=== PATIENT | female | born 1970 | race Two or more races ===

== ENCOUNTER 2020-05-03 11:30 | Inpatient (IN) | payer OTHER ==
[~2020-05-03] VITALS: Ht 165.1 cm; Wt 117.9 kg
[2020-05-03] MEDS ORDERED: LODINE300 MG PO (12:48)
[2020-05-09] MEDS ORDERED: ETODOLAC500 M1 PO (09:01)
[2020-05-14] MEDS ORDERED: KEFLEX500 MG PO (07:16)
[2020-05-14] MEDS ORDERED: ETODOLAC300 MG PO (07:24)
[2020-05-14] MEDS ORDERED: COLACE100 MG PO (07:24)
== END 2020-05-14 09:01 | disposition home or self-care (01) | DRG 740 ==
LOC: RECOVERY 11:30 → OB/GYN 05-09 06:40 → O/R 05-09 06:40 → SURH 05-09 07:00 → OB/GYN 05-09 14:19
PROVIDERS: Surgery; ADMIT Obstetrics & Gynecology; ATTEND Obstetrics & Gynecology
PROC: 0UT90ZZ Resection of Uterus, Open Approach (ICD-10-PCS; principal; 2020-05-09 07:00)
PROC: 0DNW0ZZ Release Peritoneum, Open Approach (ICD-10-PCS; 2020-05-09 07:00)
DX: C54.1 Malignant neoplasm of endometrium (principal); L03.116 Cellulitis of left lower limb; L02.416 Cutaneous abscess of left lower limb; N84.1 Polyp of cervix uteri; N73.6 Female pelvic peritoneal adhesions (postinfective); R50.82 Postprocedural fever

== ENCOUNTER 2020-06-29 10:05 | Inpatient (IN) | payer OTHER ==
[~2020-06-29] VITALS: Ht 165.1 cm; Wt 123.4 kg
[~2020-06-29 10:05] MED LIST: COLACE100 MG PO; ETODOLAC300 MG PO; ETODOLAC500 M1 PO; KEFLEX500 MG PO; LODINE300 MG PO
[2020-07-01] MEDS ORDERED: LODINE300 MG PO (10:31)
[2020-07-04] MEDS ORDERED: LODINE XL500 MG PO (13:16)
== END 2020-07-06 12:19 | disposition home or self-care (01) | DRG 743 ==
LOC: OB/GYN 07-01 08:30 → O/R 07-04 07:32 → OB/GYN 07-04 08:30
PROVIDERS: Surgery; ADMIT Obstetrics & Gynecology Gynecologic Oncology; ATTEND Obstetrics & Gynecology Gynecologic Oncology
PROC: 0UB20ZZ Excision of Bilateral Ovaries, Open Approach (ICD-10-PCS; principal; 2020-07-04 12:45)
PROC: 0UBC0ZZ Excision of Cervix, Open Approach (ICD-10-PCS; 2020-07-04 12:45)
DX: D26.0 Other benign neoplasm of cervix uteri (principal); N83.292 Other ovarian cyst, left side; N83.291 Other ovarian cyst, right side; N72 Inflammatory disease of cervix uteri

== ENCOUNTER → 2021-01-21 | Day surgery (SDC) | payer OTHER ==
[~2021-01-21] MED LIST changes: +LODINE XL500 MG PO
== END | disposition home or self-care (01) ==
LOC: ADM 01-14 12:30 → AMB-ENDOS 07:58
PROVIDERS: ATTEND Surgery
DX: K62.1 Rectal polyp (principal); K63.5 Polyp of colon; Z20.822 Contact with and (suspected) exposure to COVID-19; Z12.11 Encounter for screening for malignant neoplasm of colon

== ENCOUNTER 2022-04-30 05:45 | Day surgery (SDC) | payer OTHER ==
[2022-04-30] MEDS ORDERED: PROTONIX20 MG PO (08:25)
[2022-04-30] MEDS ORDERED: CARAFATE1 GM/10 ML PO (08:25)
== END 2022-04-30 09:30 | disposition home or self-care (01) ==
LOC: AMB-ENDOS 05:45
PROVIDERS: ATTEND Surgery
DX: K29.60 Other gastritis without bleeding (principal); E66.01 Morbid (severe) obesity due to excess calories; I10 Essential (primary) hypertension; Z20.822 Contact with and (suspected) exposure to COVID-19